=== PATIENT | male | born 1960 | race Caucasian/White ===

== ENCOUNTER 2019-01-15 07:46 | Inpatient (IN) | payer OTHER ==
[~2019-01-15 07:46] MED LIST: POVIDONE-IODINE 20 ML in SODIUM CL IRRIG SOLUTION 500 ML IRR ONE; ROPIVACAINE 0.2% 80 MG, EPINEPHrine 0.2 MG, KETOROLAC TROMETHAMINE 30 MG in SYRINGE 0 ML IU ONE; TRANEXAMIC ACID 1,000 MG in NS 100 ML IV ONE; TRANEXAMIC ACID 3,000 MG in NS (SYRINGE) 50 ML IRR ONE
[2019-01-15] MEDS ORDERED: FAMOTIDINE 20 MG TAB PO ONE (07:53)
[2019-01-15] MEDS ORDERED: ONDANSETRON 4 MG/2 ML VIAL IVP ONE (07:53)
[2019-01-15] MEDS ORDERED: ACETAMINOPHEN 325 MG TAB PO ONE (07:53)
[2019-01-15] MEDS ORDERED: DEXAMETHASONE 4 MG/ML VIAL IVP ONE (07:53)
[2019-01-15] MEDS ORDERED: GABAPENTIN 300 MG CAP PO ONE (07:53)
[2019-01-15] MEDS ORDERED: ceFAZolin 2 GM/DEXTROSE 100 ML IV ONE (07:53)
[2019-01-15] MEDS ORDERED: LR 1,000 ML IV ONE (07:55)
[2019-01-15] MEDS ORDERED: PROPOFOL/EMULSION 500 MG/50 ML BOTTLE IV ONE (08:40)
[2019-01-15] MEDS ORDERED: LIDOCAINE 2% 5 ML SDV ONE (08:44)
[2019-01-15] MEDS ORDERED: TRANEXAMIC ACID 3,000 MG/50 ML BAG IRR ONE (08:48)
[2019-01-15] MEDS ORDERED: ceFAZolin 1 GM/5 ML SYR ONE (08:48)
--- NOTE | 2019-01-15 09:02 | PDHPUP ---
History & Physical Update H&P update statement: This history and physical update is based on an assessment of the patient which was completed after admission or registration (within 24 hours), but prior to the surgery/procedure. H&P update: H&P reviewed & patient examined
[2019-01-15] MEDS ORDERED: MIDAZOLAM 2 MG/2 ML VIAL IVP ONE (09:47)
--- NOTE | 2019-01-15 09:49 | PDANEPAE ---
ANE History of Present Illness right BHR ANE Past Medical History - Cardiovascular History Hx Hypertension: No Hx Arrhythmias: Yes Hx Chest Pain: No Hx Coronary Artery / Peripheral Vascular Disease: No Hx CHF / Valvular Disease: No Hx Palpitations: No Cardiovascular History Comment: HEART MURMUR. EBSTEIN ANOMALY- mild case. DVT POST OP 2010. followed by [facility]- will obtain records - Pulmonary History Hx COPD: No Hx Asthma/Reactive Airway Disease: Yes Hx Recent Upper Respiratory Infection: No Hx Oxygen in Use at Home: No Hx Sleep Apnea: No Sleep Apnea Screening Result - Last Documented: Negative Pulmonary History Comment: ASTHMA- mild, instructed pt to bring inhaler. 2011 POST OP PNEUMONIA - Neurologic History Hx Cerebrovascular Accident: No Hx Seizures: No Hx Dementia: No - Endocrine History Hx Diabetes: No Obesity: no - Renal History Hx Renal Disorders: No Renal History Comment: FREQUENCY AT NOC - Liver History Hx Hepatic Disorders: No - Neurological & Psychiatric Hx Hx Neurological and Psychiatric Disorders: No - Cancer History Hx Cancer: No Cancer History Comment: FATHER LYMPHOMA - Congenital Disorder History Hx Congenital Disorders: Yes Congenital History Comment: EBSTEIN ANOMALY - GI History Hx Gastrointestinal Disorders: Yes Gastrointestinal History Comment: hx of ACID REFLUX - Other Health History Other Health History: wears glasses - Chronic Pain History Chronic Pain: Yes (right hip) - Surgical History Prior Surgeries: 02/25/15 left hip resurfacing with [place]. MENISCUS L KNEE X2. HERNIA REPAIR ABD. THUMBS ELIGIO REATTACHMENT. SINUS SURG 2010 ANE Review of Systems Review of Systems: - Exercise capacity METS (RN): 5 METS ANE Patient History - Allergies Allergies/Adverse Reactions: hydrocodone Allergy (Verified 01/01/19 15:38) Itching Sulfa (Sulfonamide Antibiotics) Allergy (Verified 01/01/19 15:20) Rash - Home Medications Home medications: home medication list seen and reviewed Home Medications: Acetaminophen [Pain Reliever] 500 mg PO PRN 12/31/18 [Last Taken 3 Days Ago ~] Albuterol Sulfate [Ventolin Hfa] 1 inh IH Q4H PRN 12/31/18 [Last Taken 01/14/19] Ibuprofen [Motrin (*)] 400 mg PO PRN PRN 12/31/18 [Last Taken 1 Week Ago ~] - NPO status NPO Since - Liquids (Date): 01/15/19 NPO Since - Liquids (Time): 05:30 NPO Since - Solids (Date): 01/14/19 NPO Since - Solids (Time): 19:30 - Anes Hx Anes Hx: no prior problems - Smoking Hx Smoking Status: Never smoked - Family Anes Hx Family Hx Anesthesia Complications: none ANE Labs/Vital Signs - Vital Signs Blood Pressure: 150/81 Heart Rate: 62 Respiratory Rate: 16 O2 Sat (%): 99 Height: 175.26 cm Weight: 71.214 kg ANE Physical Exam - Airway Neck exam: FROM Mallampati Score: Class 1 Mouth exam: normal dental/mouth exam - Pulmonary Pulmonary: no respiratory distress - Cardiovascular Cardiovascular: regular rate and rhythym - ASA Status ASA Status: III ANE Anesthesia Plan Anesthesia Plan: spinal
--- NOTE | 2019-01-15 09:50 | POSTANESTH ---
Post Anesthetic Evaluation Cardiovascular Status: Normal, Stable Respiratory Status: Normal, Stable Level of Consciousness/Mental Status: Can Participate in Eval, Alert and Oriented Pain Control: Adequate, Prn Tx Ordered Nausea/Vomiting Control: Adequate, Prn Tx Ordered Complications Possibly Related to Anesthesia: None Noted
[2019-01-15] MEDS ORDERED: BUPIVACAINE/DEXTROSE 7.5MG/ML 2 ML SPINAL AMP SP ONE (09:51)
[2019-01-15] MEDS ORDERED: NALOXONE HCL 0.4 MG/ML INJ IVP PRN (10:47)
[2019-01-15] MEDS ORDERED: ACETAMINOPHEN 500 MG TAB PO PRN (10:47)
[2019-01-15] MEDS ORDERED: fentaNYL 100 MCG/2 ML INJ IVP PRN (10:47)
[2019-01-15] MEDS ORDERED: ONDANSETRON 4 MG/2 ML VIAL IVP PRN ×2 (10:47→12:23)
[2019-01-15] MEDS ORDERED: HYDROmorphONE/DILAUDID 2 MG/ML INJ IVP PRN (10:47)
[2019-01-15] MEDS ORDERED: oxyCODONE IR 5 MG TAB PO PRN ×2 (10:47→12:23)
[2019-01-15] MEDS ORDERED: LR 500 ML IV PRN (10:47)
[2019-01-15] MEDS ORDERED: PROMETHAZINE HCL 25 MG/ML INJ IVP PRN ×2 (10:47→12:23)
[2019-01-15] MEDS ORDERED: PROPOFOL 200 MG/20 ML VIAL ONE (11:33)
--- NOTE | 2019-01-15 12:11 | POSTOPPROG ---
Post Op Note Date of Operation: 01/15/19 Surgeon: Todd Johnston File Conversion Operator: Julian Anesthesiologist: Giancarlo Anesthesia: IV Sedation, Spinal Post-op Diagnosis: Right hip arthritis Procedure: Right hip [place] hip resurfacing arthroplasty Inf/Abcess present in the surg proc area at time of surgery?: No EBL: [id number]
[2019-01-15] MEDS ORDERED: ALBUTEROL INH PREPACK MDI TAKEHOME PRN (12:21)
[2019-01-15] MEDS ORDERED: DIPHENOXYLATE/ATROPINE LOMOTIL 1 TAB PO PRN (12:23)
[2019-01-15] MEDS ORDERED: NS 500 ML IV PRN (12:23)
[2019-01-15] MEDS ORDERED: traMADol 50 MG TAB PO PRN (12:23)
[2019-01-15] MEDS ORDERED: METOCLOPRAMIDE 10 MG/2 ML VIAL IVP PRN (12:23)
[2019-01-15] MEDS ORDERED: PROMETHAZINE HCL 25 MG SUPPR PR PRN (12:23)
[2019-01-15] MEDS ORDERED: POLYETHYLENE GLYCOL 3350 17 GM PKT PO PRN (12:23)
[2019-01-15] MEDS ORDERED: BISACODYL 10 MG SUPP PR PRN (12:23)
[2019-01-15] MEDS ORDERED: MAGNESIUM HYDROXIDE 30 ML UDCUP PO PRN (12:23)
[2019-01-15] MEDS ORDERED: ONDANSETRON DISINTEGRATING 4 MG TAB PO PRN (12:23)
[2019-01-15] MEDS ORDERED: CYCLOBENZAPRINE 10 MG TAB PO PRN (12:23)
[2019-01-15] MEDS ORDERED: diphenhydrAMINE 25 MG CAP PO PRN (12:23)
[2019-01-15] MEDS ORDERED: LACTULOSE 20 GM/30 ML UDCUP PO PRN (12:23)
[2019-01-15] MEDS ORDERED: TEMAZEPAM 15 MG CAP PO PRN (12:23)
[2019-01-15] MEDS ORDERED: LR 1,000 ML IV SCH (12:30)
[2019-01-15] MEDS ORDERED: ALBUTEROL 60 PUFFS/8 GM MDI IH PRN (13:00)
--- NOTE | 2019-01-15 13:38 | PDMN ---
Medical Necessity Medical necessity: Pt meets inpt criteria per MD order and [facility] [place], [facility] IP only, 2 days. 58 y/o w/R hip arthritis admitted for R hip [place] hip resurfacing arthroplasty and post-op care.
[2019-01-15] MEDS ORDERED: ceFAZolin 2 GM/DEXTROSE 100 ML IV SCH (14:00)
--- NOTE | 2019-01-15 14:08 | GOP ---
[f rep st] OPERATIVE REPORT DATE OF OPERATION: 01/15/2019 SURGEON: Todd Johnston MD BARREL POLISHER: Gerson Davies and Shahbaz Streeter. ANESTHESIA: Combination of Marcaine, spinal, and IV sedation. ANESTHESIOLOGIST: Dr. Jose Britton. PREOPERATIVE DIAGNOSIS: Right hip severe degenerative arthritis. POSTOPERATIVE DIAGNOSIS: Right hip severe degenerative arthritis. PROCEDURE PERFORMED: Right hip [place] hip resurfacing arthroplasty. FINDINGS: DESCRIPTION OF PROCEDURE: The patient was given 2 g of IV Ancef preoperatively within 60 minutes of surgery. He also received 1000 mg of IV tranexamic acid preoperatively. He was placed on the operat ing room table and given spinal anesthesia with Marcaine by Dr. Britton. He was then placed supine and given IV sedation. A Back catheter was not used. He wore a compressive stocking and SCD on the nonoperative leg. He was rolled to the left lateral decubitus position. An axillary roll was used, and all pressure points were carefully padded. The position was secured with the pegboard table att achment. I was careful to lock his pelvis in a rigid vertical position. His perineum was isolated w ith plastic adhesive drapes. His right hip and right lower extremity were prepped with ChloraPrep. They were draped free using sterile sheets, stockinette, and Iob[place] plastic adhesive drape. The [employer] time-out was performed to verify the correct patient identity and the c orrect surgical side and site. The [place] time-out was also performed. I made a 6 to 7-inch straight oblique posterolateral hip skin incision. Subcutaneous tissues were sh arply divided, and hemostasis was obtained using electrocautery. His fascia jolie was identified and split along the axis of its fibers. I then curved posteriorly and proximally and split the fascia of the gluteus kerri and bluntly split the muscle fibers in line with their orientation. His sciatic nerve was identified and protected throughout the procedure. The [place] self-retaining retractor was inserted. The external rotators and the posterior hip capsule were divided as separate layers at the base of the femoral neck, tagged, and reflected posteriorly. The gluteus kerri tendon was div ided and tagged in order to improve exposure and release tension on the sciatic nerve. His hip was d islocated posteriorly. I used a sizing gauge to check the diameter of the neck and concluded that 48 mm was the proper head size. I performed a circumferential capsulotomy. I had a difficult time dis placing the head anteriorly and superiorly. I had to be sure I had a thorough capsular release. Had to work at it and get the retractors properly positioned in order to get the femoral head moved ante riorly and superiorly. The remnant of his damaged labrum was completely excised. The acetabulum was reamed sequentially up to 54 mm. I selected the [place] monoblock porous-coated acetabular compo nent with an outside diameter of 54 mm. This was firmly impacted and was a very tight fit. I was ca reful to determine proper inclination and anteversion. I used the transverse acetabular ligament and other acetabular bony landmarks to help me determine proper cup orientation. He had a moderately la rge anterior acetabular osteophyte which I removed with an osteotome and rongeur. He had a small pos teroinferior osteophyte which I removed with a rongeur. I was careful to leave a good lip of bone ex tending beyond the anteroinferior lip of the metal cup. I then returned to preparation of the femoral head. Using appropriate jigs and guides, I inserted a guide pin into the femoral head and neck. I was careful to position it in such a way that there woul d be no notching of the neck. The large sterile metal goniometer was used to check the neck shaft an gle. I reamed over the guide pin and inserted the reaming guide. I then used a cylindrical reamer d own to the head and neck junction. This was followed by the flat reamer and the chamfer reamer. He had excellent quality bone in his femoral head. The head was sized for 48 mm. There was no impingem ent or damage on the neck. I drilled a small hole in the lesser trochanter and inserted a suction ca nnula to create negative pressure in the medullary canal. Small holes were drilled on the flattened and chamfer surfaces of the prepared head for cement anchors. The head was thoroughly cleaned with t he pulsating lavage and carefully dried. I used a CarboJet device to blow dry the cancellous surface s. A single batch of Simplex cement with tobramycin was mixed. At about 50 seconds, I poured the li quid cement into the head component, inserted it onto the prepared femoral head, and impacted it into place. Excess cement was removed before it hardened. The acetabulum was irrigated and cleaned and inspected, and the hip was reduced. Stability and range of motion were checked. I placed my finger along the anterior aspect of the acetabular component an d flexed the hip to 110 degrees. There was no anterior impingement. The suction cannula on the less er trochanter was removed. The wound was irrigated with an antibiotic saline solution. The hospital currently could not obtain sterile Betadine for Betadine solution irrigation. 40 cc of joint anesth etic cocktail were injected into the capsule, the deep musculature, and subcutaneous tissues, along w ith skin edges. 50 cc of tranexamic acid solution were irrigated into the wound. His sciatic nerve was reinspected and looked unharmed. The external rotators and the posterior hip c apsule were repaired in separate layers with #2 FiberWire sutures through drill holes in the greater trochanter. This provided a strong posterior capsular and external rotator repair. The gluteus maxi mus tendon was repaired with 2 [id number] #2 FiberWire sutures. The fascia jolie was repaired fi rst with 2 interrupted [id number] #2 FiberWire sutures, followed by a running #2 barbed Ethicon Stratafix PDO suture. The subcutaneous tissues were closed with running 0 barbed Ethicon Stratafix M onoderm suture. The skin was closed with running 3-0 barbed Ethicon Stratafix Monoderm subcuticular suture. The skin edges were reapproximated and sealed with Dermabond glue. The wound was covered wi th a large sterile Mepilex waterproof dressing. A sacral Mepilex dressing was applied. The estimated blood loss was 400 cc. We used a [employer] [place] hip resurfacing system. The acetabular component was 54 mm in diameter and press-fit. The femoral head was 48 mm and cemented. A long-leg compressive stocking an d SCD were applied to his operative leg. An abduction pillow was placed between his knees. He was a wakened from anesthesia and rolled to the supine position on his [facility]. He was [facility] to [facility] in satisfactory condition. There were no recognized intraoperative complications. The sponge and needle count were correct on 2 occasions. Gerson Davies and Shahbaz Streeter acted as surgical assistants. Their assistance was a medical necess ity for the safe completion of the procedure. Copy requested to: Scott [employer] /[id number]/MODL
[2019-01-15] MEDS: ACETAMINOPHEN 325 MG TAB PO SCH (18:40)
[2019-01-15] MEDS: KETOROLAC 15 MG/1 ML SDV IVP SCH (18:40)
[2019-01-15] MEDS: ceFAZolin 2 GM/DEXTROSE 100 ML IV SCH (18:46)
[2019-01-15] MEDS: FAMOTIDINE 20 MG TAB PO SCH (20:01)
[2019-01-15] MEDS: SENNOSIDES/DOCUSATE SODIUM TAB PO SCH (20:01)
[2019-01-16] MEDS: ACETAMINOPHEN 325 MG TAB PO SCH ×3 (00:41→12:08)
[2019-01-16] MEDS: ceFAZolin 2 GM/DEXTROSE 100 ML IV SCH (01:16)
[2019-01-16] MEDS: KETOROLAC 15 MG/1 ML SDV IVP SCH ×3 (05:17→12:09)
[2019-01-16 07:50] VITALS: BP 107/65
[2019-01-16] MEDS ORDERED: FERROUS SULFATE 325 MG TAB PO SCH (08:00)
[2019-01-16] MEDS ORDERED: RIVAROXABAN 10 MG TAB PO SCH (09:00)
--- NOTE | 2019-01-16 09:40 | SOAPPROG ---
SOAP Progress Note Assessment/Plan: Assessment: Afebrile. Awake and alert. Vital signs stable. He has been up and walking. Very little pain. His dressing is dry. Sciatic nerve intact. Postop H&H are good. Postop films look excellent. Plan: Physical therapy today for stairs. Discharge later today. He has a history of previous DVT. I will treat him with Xarelto for 21 days. 01/16/19 09:38 Objective: Vital Signs Temp Pulse Resp BP Pulse Ox 36.6 C 61 16 107/65 96 01/16/19 07:48 01/16/19 07:48 01/16/19 07:48 01/16/19 07:48 01/16/19 07:48 Laboratory Results 01/16/19 04:30 01/15/19 01/16/19 01/17/19 05:59 05:59 05:59 Intake Total 5250 500 Output Total 1544 550 Balance 1375 -50 ICD10 Worksheet Patient Problems: Problems Problem Status Onset Osteoarthritis of right hip Acute Osteoarthritis of left hip Acute
[2019-01-16] MEDS: SENNOSIDES/DOCUSATE SODIUM TAB PO SCH (10:00)
[2019-01-16] MEDS: FAMOTIDINE 20 MG TAB PO SCH (10:02)
--- NOTE | 2019-01-16 10:21 | ASMTLACE ---
LACE Length of stay for Answers: 2 days current admission Acuity / Level of Answers: Yes Care: Did the patient have an inpatient admission? Comorbidities - select Answers: Other Notes: heart disease, asthma all that apply # of Emergency department Answers: 0 visits in the last 6 months Score: 6 Date Signed: 01/16/2019 10:20 AM Electronically Signed By:HARRISON Washington
--- NOTE | 2019-01-16 10:26 | ASMTCMCOM ---
CM Note CM Note Notes: PT had planned hip surgery. PT notes says pt want HC. Spoke with GUTIERREZ Streeter who reports they discussed HC with pt and pt does not need HC. No CM d/c needs identified. Date Signed: 01/16/2019 10:25 AM Electronically Signed By:HARRISON Washington
--- NOTE | 2019-01-16 10:31 | GDS ---
[f rep st] DISCHARGE SUMMARY ADMISSION DIAGNOSIS: Right hip degenerative arthritis. DISCHARGE DIAGNOSIS: Right hip degenerative arthritis. OPERATION PERFORMED: 01/15/2019, a right hip [place] hip resurfacing arthroplasty. POSTOPERATIVE COMPLICATIONS: None. CONDITION ON DISCHARGE: Improved. DESCRIPTION OF HOSPITAL COURSE: The patient was admitted to the hospital on the morning of surgery. His admission CBC was normal. The same day, under a combination of Marcaine, spinal and IV sedation , he underwent a right hip [place] hip resurfacing arthroplasty. Postoperatively, he was treated with multimodal DVT prophylaxis, including Xarelto. He has a previous history of DVT. On the first postoperative day, his hemoglobin and hematocrit were 12.3 and 35.8. He was seen by Physical Therapy and made good progress with ambulation and stairs. By the time of discharge, he was afebrile, his w ound was dry and he was independent walking with a walker. DISPOSITION: He is discharged to his home in [place]. He may progress to full weightbearing on the r ight as tolerated. Use an abduction pillow in bed for 3 weeks. Continue Xarelto 10 mg a day for 21 days. He has prescriptions for oxycodone and tramadol for pain control. He will go to outpatient ph ysical therapy in 7-10 days in [place]. I will see him back in the office on February 04, 2019. If ther e are any problems, he is to call me at the office. Copy requested to: Dr. Scott Pinedo /[id number]/MODL
== END 2019-01-16 12:13 | disposition home or self-care (01) | DRG 470 ==
LOC: F3N 07:46 → OBSVTOIN 12:26 → F3N 13:47
PROVIDERS: ADMIT Orthopaedic Surgery; ATTEND Orthopaedic Surgery
PROC: 0SU90BZ Supplement Right Hip Joint with Resurfacing Device, Open Approach (ICD-10-PCS; principal; 2019-01-15 09:30)
DX: M16.11 Unilateral primary osteoarthritis, right hip (principal); J45.909 Unspecified asthma, uncomplicated
CPT/HCPCS: 97116-GP; 97161-GP; 97165-GO; C1713; J0171; J0690; J1100; J1885; J2250; J2405; J2704; J2795